=== PATIENT | female | born 1985 | race Asian ===

== ENCOUNTER 2020-01-31 00:15 | Inpatient (IN) | payer BC, OTHER ==
[~2020-01-31] VITALS: Ht 167.6 cm; Wt 100.2 kg
[2020-01-31] MEDS ORDERED: OXYTOCIN 30U/ 0.9% NaCL 500ML 500 ML IV PRN (05:20)
[2020-01-31] MEDS ORDERED: D5%-LACTATED RINGERS 1,000 ML IV SCH (05:20)
[2020-01-31] MEDS ORDERED: OXYTOCIN 30U/ 0.9% NaCL 500ML 500 ML IV ONE (05:20)
[2020-01-31] MEDS ORDERED: NEWBORN KIT ONE (05:25)
[2020-01-31] MEDS ORDERED: OXYTOCIN 30U/ 0.9% NaCL 500ML 500 ML ONE ×2 (05:25→13:52)
[2020-01-31] MEDS ORDERED: LIDOCAINE 1%, 20ML ONE (05:25)
[2020-01-31] MEDS ORDERED: MISOPROSTOL 200 MCG TABLET ONE (05:25)
[2020-01-31] MEDS ORDERED: FENTANYL PF 100 MCG/2ML IVPush PRN (05:30)
[2020-01-31] MEDS ORDERED: ONDANSETRON 2MG/ML, 2ML IVPush PRN (05:30)
[2020-01-31] MEDS ORDERED: FENTANYL PF 100 MCG/2ML IV PRN (05:30)
[2020-01-31] MEDS ORDERED: TERBUTALINE 1 MG/ML, 1ML SQ PRN (05:30)
[2020-01-31] MEDS ORDERED: TERBUTALINE 1 MG/ML, 1ML IVPush PRN (05:30)
[2020-01-31] MEDS ORDERED: CALCIUM CARBONATE 500 MG TAB.CHEW PO PRN (05:30)
[2020-01-31] MEDS: LACTATED RINGERS 1,000 ML IV SCH ×2 (05:37→09:22)
[2020-01-31 06:02] VITALS: BP 112/77
[2020-01-31 06:04] LABS: BASOPHILS % (AUTO) 1 % (0-1); EOSINOPHILS % (AUTO) 1 % (1-7); LYMPHOCYTES % (AUTO) 17 % (22-44); MEAN CORPUSCULAR HEMOGLOBIN 27.7 pg (27.0-34.8); MEAN CORPUSCULAR HGB CONC 33.1 g/dL (32.4-35.8); MEAN PLATELET VOLUME 8.4 fL (7.4-10.4); MONOCYTES % (AUTO) 6 % (2-9); NEUTROPHILS % (AUTO) 76 % (42-75); PLATELET COUNT 224 x10^3/uL (130-400); RED BLOOD COUNT 4.33 x10^6/uL (3.82-5.3); RED CELL DISTRIBUTION WIDTH 14.7 % (9.6-15.2)
[2020-01-31 06:37] LABS: MD NO
[2020-01-31] MEDS ORDERED: LIDOCAINE/PF 1.5%-EPI 1:200K, 30ML ONE (09:43)
[2020-01-31] MEDS ORDERED: FENTANYL/BUPIV./NS/PF 250 ML EPIDCONT ONE (09:43)
[2020-01-31] MEDS ORDERED: FENTANYL/BUPIV./NS/PF 250 ML EPIDCONT SCH (10:17)
[2020-01-31] MEDS ORDERED: LACTATED RINGERS 1,000 ML IV SCH (10:17)
[2020-01-31] MEDS ORDERED: NALOXONE 0.4 MG/ML, 1ML IVPush PRN (10:30)
[2020-01-31] MEDS ORDERED: EPHEDRINE 50 MG/ML, 1ML IVPush PRN (10:30)
[2020-01-31] MEDS ORDERED: LACTATED RINGERS 1,000 ML IVBOLUS PRN (10:30)
[2020-01-31] MEDS ORDERED: IBUPROFEN 800 MG TABLET ONE (13:42)
[2020-01-31] MEDS: IBUPROFEN 800 MG TABLET PO PRN (13:45)
[2020-01-31] MEDS: OXYTOCIN 30U/ 0.9% NaCL 500ML 500 ML IV SCH ×2 (13:54→23:35)
[2020-01-31] MEDS ORDERED: BISACODYL 10 MG SUPP PR PRN (14:00)
[2020-01-31] MEDS ORDERED: HYDROcodone/APAP 5/325 TABLET PO PRN (14:00)
[2020-01-31] MEDS ORDERED: MISOPROSTOL 200 MCG TABLET PR PRN (14:00)
[2020-01-31] MEDS ORDERED: DOCUSATE 100 MG CAPSULE PO PRN (14:00)
[2020-01-31] MEDS ORDERED: OXYcodone/APAP 5/325MG TABLET PO PRN (14:00)
[2020-01-31] MEDS ORDERED: RHOGAM FROM BLOOD BANK 1 NOTE EA IM/IV ONE (14:00)
[2020-01-31] MEDS ORDERED: ACETAMINOPHEN 325 MG TABLET PO PRN (14:00)
[2020-01-31] MEDS ORDERED: IBUPROFEN 200 MG TABLET PO PRN (14:00)
[2020-01-31] MEDS ORDERED: ONDANSETRON 2MG/ML, 2ML IV PRN (14:00)
[2020-01-31 16:00] VITALS: BP 109/62
[2020-01-31 20:00] VITALS: BP 123/60
[2020-01-31 23:08] LABS: BASOPHILS % (AUTO) 0 % (0-1); EOSINOPHILS % (AUTO) 1 % (1-7); LYMPHOCYTES % (AUTO) 14 % (22-44); MEAN CORPUSCULAR HEMOGLOBIN 27.5 pg (27.0-34.8); MEAN PLATELET VOLUME 8.4 fL (7.4-10.4); MONOCYTES % (AUTO) 7 % (2-9); NEUTROPHILS % (AUTO) 78 % (42-75); PLATELET COUNT 190 x10^3/uL (130-400); RED BLOOD COUNT 4.09 x10^6/uL (3.82-5.3); RED CELL DISTRIBUTION WIDTH 14.5 % (9.6-15.2)
[2020-01-31 23:25] LABS: MD NO
[2020-02-01] MEDS: IBUPROFEN 800 MG TABLET PO PRN (00:24)
[2020-02-01 00:25] VITALS: BP 124/56
[2020-02-01 04:55] VITALS: BP 118/62
[2020-02-01] MEDS ORDERED: ENOXAPARIN 40 MG/0.4 ML SQ SCH (05:00)
[2020-02-01 05:40] LABS: CREATININE 0.55 mg/dL (0.55-1.02)
[2020-02-01 07:30] VITALS: BP 106/67
[2020-02-01] MEDS ORDERED: IBUP-1222 PO (08:32)
[2020-02-01] MEDS ORDERED: DOCU-131 PO (08:33)
[2020-02-01] MEDS ORDERED: ASPIRIN 81 MG TABLET CHEW PO SCH (09:00)
[2020-02-01] MEDS ORDERED: PRENATAL VIT/IRON/FA 1 EACH TABLET PO SCH (09:00)
[2020-02-01] MEDS: OXYTOCIN 30U/ 0.9% NaCL 500ML 500 ML IV SCH (09:35)
== END 2020-02-01 14:20 | disposition home or self-care (01) | DRG 806 ==
LOC: LDIP 05:04 → 2NW 15:39
PROVIDERS: ADMIT Obstetrics & Gynecology; ATTEND Obstetrics & Gynecology
PROC: 10E0XZZ Delivery of Products of Conception, External Approach (ICD-10-PCS; principal; 2020-01-31)
PROC: 3E0R3BZ Introduction of Anesthetic Agent into Spinal Canal, Percutaneous Approach (ICD-10-PCS; 2020-01-31)
PROC: 00HU33Z Insertion of Infusion Device into Spinal Canal, Percutaneous Approach (ICD-10-PCS; 2020-01-31)
DX: O99.12 Other diseases of the blood and blood-forming organs and certain disorders involving the immune mechanism complicating childbirth (principal); D68.61 Antiphospholipid syndrome; Z37.0 Single live birth; Z3A.39 39 weeks gestation of pregnancy; O69.81X0 Labor and delivery complicated by cord around neck, without compression, not applicable or unspecified
CPT/HCPCS: 36415; 82565; 82962; 85025; 86592; 86850; 86900; G0378; J1650; J2590; J3010; J7120

== ENCOUNTER 2020-03-30 07:14 | Day surgery (SDC) | payer OTHER ==
[2020-03-27 09:26] LABS: ALANINE AMINOTRANSFERASE 43 U/L (12-78); ALBUMIN 3.7 g/dL (3.4-5.0); ANION GAP 5 mmol/L (5-15); CALCIUM 8.8 mg/dL (8.5-10.1); CHLORIDE 109 mmol/L (98-107); CREATININE 0.75 mg/dL (0.55-1.02)
[2020-03-27 09:30] LABS: ALKALINE PHOSPHATASE 86 U/L (45-117); BILIRUBIN,TOTAL 0.6 mg/dL (0.2-1.0); TOTAL PROTEIN 7.6 g/dL (6.4-8.2)
[2020-03-27 09:37] LABS: MICROSCOPIC INDICATED
[2020-03-27 10:02] LABS: BASOPHILS % (AUTO) 1 % (0-1); EOSINOPHILS % (AUTO) 2 % (1-7); LYMPHOCYTES % (AUTO) 29 % (22-44); MEAN CORPUSCULAR HEMOGLOBIN 27.6 pg (27.0-34.8); MONOCYTES % (AUTO) 7 % (2-9); NEUTROPHILS % (AUTO) 61 % (42-75); PLATELET COUNT 209 x10^3/uL (130-400); RED BLOOD COUNT 4.89 x10^6/uL (3.82-5.3); RED CELL DISTRIBUTION WIDTH 16.9 % (9.6-15.2)
[2020-03-27 10:04] LABS: MD NO
[~2020-03-30] VITALS: Ht 167.6 cm; Wt 97.0 kg
[~2020-03-30 07:14] MED LIST: BUPIVACAINE/PF 0.25% ONE; DOCU-131 PO; EPINEPHRINE 1 MG/ML, 1ML ONE; FENTANYL PF 250 MCG/5ML ONE; IBUP-1222 PO; MIDAZOLAM 1 MG/ML, 2ML ONE; NONE PER PT
[2020-03-30] MEDS ORDERED: CHLORHEXIDINE 15 ML UDC ONE (07:27)
[2020-03-30 07:33] VITALS: BP 110/85
[2020-03-30] MEDS ORDERED: LACTATED RINGERS 1,000 ML IV SCH (08:00)
[2020-03-30] MEDS ORDERED: CHLORHEXIDINE 15 ML UDC MM ONE (08:00)
[2020-03-30] MEDS ORDERED: SCOPOLAMINE 1MG PATCH TD ONE (09:22)
[2020-03-30] MEDS ORDERED: ACETAMINOPHEN 500 MG TABLET ONE (09:23)
[2020-03-30] MEDS ORDERED: SCOPOLAMINE 1MG PATCH TD SCH (09:30)
[2020-03-30] MEDS ORDERED: ACETAMINOPHEN 500 MG TABLET PO ONE (09:30)
[2020-03-30] MEDS ORDERED: PROPOFOL 50 ML ONE (09:56)
[2020-03-30] MEDS ORDERED: METHOCARBAMOL 1,000 MG in DEXTROSE 5% 100 ML IV PRN (10:30)
[2020-03-30] MEDS ORDERED: LABETALOL 5MG/ML, 20ML IV PRN (10:30)
[2020-03-30] MEDS ORDERED: OXYcodone 5 MG/5 ML ORAL.SOL UDC PO PRN (10:30)
[2020-03-30] MEDS ORDERED: MEPERIDINE/PF 25MG/0.5ML IVPush PRN (10:30)
[2020-03-30] MEDS ORDERED: HYDROmorphone 1 MG/ML, 1ML INJ IVPush PRN (10:30)
[2020-03-30] MEDS ORDERED: hydrALAzine 20 MG/ML, 1ML IV PRN (10:30)
[2020-03-30] MEDS ORDERED: LORazepam 2 MG/ML, 1ML IVPush PRN (10:30)
[2020-03-30] MEDS ORDERED: ONDANSETRON 2MG/ML, 2ML IVPush PRN (10:30)
[2020-03-30] MEDS ORDERED: EPHEDRINE 50 MG/ML, 1ML IVPush PRN (10:30)
[2020-03-30] MEDS ORDERED: PROMETHAZINE 25 MG/ML, 1ML IVPush PRN (10:30)
[2020-03-30] MEDS ORDERED: ACETAMINOPHEN 325 MG TABLET PO PRN (10:30)
[2020-03-30] MEDS ORDERED: OXYcodone 5 MG/5 ML ORAL.SOL UDC ONE (10:46)
[2020-03-30] MEDS ORDERED: FENTANYL PF 100 MCG/2ML ONE (10:46)
[2020-03-30] MEDS: FENTANYL PF 100 MCG/2ML IV PRN ×2 (10:58→11:03)
== END 2020-03-30 12:55 | disposition home or self-care (01) ==
LOC: OUT 07:14
PROVIDERS: ATTEND Obstetrics & Gynecology
DX: Z30.2 Encounter for sterilization (principal); N80.0 Endometriosis of uterus; K66.0 Peritoneal adhesions (postprocedural) (postinfection); Z20.828 Contact with and (suspected) exposure to other viral communicable diseases
CPT/HCPCS: 36415; 58661; 80053; 81001; 84702; 85025; 86850; 86900; 87086; 87635; 88302; J0171; J2250; J2704; J3010; J7120